=== PATIENT | female | born 1985 | race American Indian/Alaskan Native ===

== ENCOUNTER 2016-10-28 04:38 | Emergency (ER) | payer MEDICAID ==
[2016-10-28 05:21] LABS: Basophils % (Auto) 0.4 % (0.0-1.8); Eosinophils % (Auto) 0.5 % (0.0-4.3); Hematocrit 35.1 % (30.3-42.9); Hemoglobin 11.5 gm/dl (10.1-14.3); Mean Corpuscular HGB Conc 33 % (30-34); Mean Corpuscular Hemoglobin 29 pg (28-32); Mean Corpuscular Volume 87 fl (79-97); Platelet Count 219 K/mm3 (140-440); Red Blood Count 4.03 M/mm3 (3.65-5.03); Red Cell Distribution Width 13.4 % (13.2-15.2); White Blood Count 7.8 K/mm3 (4.5-11.0)
[2016-10-28 05:42] LABS: Anion Gap 17 mmol/L; BUN/Creatinine Ratio 31.66; Blood Urea Nitrogen 19 mg/dL (7-17); Calcium 8.8 mg/dL (8.4-10.2); Carbon Dioxide 25 mmol/L (22-30); Chloride 102.3 mmol/L (98-107); Glucose 103 mg/dL (65-100); Potassium 3.8 mmol/L (3.6-5.0); Sodium 140 mmol/L (137-145)
[2016-10-28 08:47] LABS: Bilirubin,Urine NEG (Negative); Blood,Urine NEG (Negative); Ketones,Urine TR mg/dL (Negative); Leukocyte Esterase,Urine NEG (Negative); Mucus,Urine 2+ /HPF; Nitrite,Urine NEG (Negative); Protein,Urine <15 mg/dL mg/dL (Negative); Urobilinogen,Urine < 2.0 mg/dL (<2.0)
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
[2016-10-28] MEDS ORDERED: TORADOL IM ONE (10:34)
--- NOTE | 2016-10-28 11:18 | XRay Report ---
Chest 2 views: History: Chest pain. Findings: Normal cardiomediastinal silhouette. Trachea is midline. No consolidation, pneumothorax or pleural effusion. Impression: No acute cardiopulmonary findings
[2016-10-28 12:48] VITALS: BP 104/58
== END 2016-10-28 12:49 | disposition home or self-care (01) ==
LOC: ED 04:38
DX: R07.89 Other chest pain (principal)
CPT/HCPCS: 36415; 71020; 80048; 81001; 81025; 84484; 85025; 93005; 93010; 96372; 99285; J1885

== ENCOUNTER 2017-06-04 10:23 | Emergency (ER) | payer MEDICAID, OTHER ==
[2017-06-04 12:17] LABS: Basophils # (Auto) 0.1 K/mm3 (0.0-0.1); Basophils % (Auto) 0.7 % (0.0-1.8); Eosinophils # (Auto) 0.2 K/mm3 (0.0-0.4); Eosinophils % (Auto) 2.9 % (0.0-4.3); Hematocrit 31.7 % (30.3-42.9); Hemoglobin 10.7 gm/dl (10.1-14.3); Lymphocytes # (Auto) 1.7 K/mm3 (1.2-5.4); Lymphocytes % (Auto) 21.1 % (13.4-35.0); Mean Corpuscular HGB Conc 34 % (30-34); Mean Corpuscular Hemoglobin 30 pg (28-32); Mean Corpuscular Volume 89 fl (79-97); Monocytes # (Auto) 0.8 K/mm3 (0.0-0.8); Monocytes % (Auto) 9.3 % (0.0-7.3); Platelet Count 268 K/mm3 (140-440); Red Blood Count 3.58 M/mm3 (3.65-5.03); Red Cell Distribution Width 13.8 % (13.2-15.2)
[2017-06-04] MEDS ORDERED: ZOFRAN ODT PO ONE (12:31)
[2017-06-04] MEDS ORDERED: TYLENOL PO ONE (12:31)
[2017-06-04 12:34] LABS: Alanine Aminotransferase 8 units/L (7-56); Albumin 3.7 g/dL (3.9-5); BUN/Creatinine Ratio 22; Blood Urea Nitrogen 11 mg/dL (7-17); Calcium 8.9 mg/dL (8.4-10.2); Hemolysis Index 6
[2017-06-04 12:44] LABS: INR 0.78 (0.87-1.13); Partial Thromboplastin Time 29.2 Sec. (24.2-36.6)
--- NOTE | 2017-06-04 12:44 | Emergency Department Report ---
Chief Complaint: Vaginal Bleeding Stated Complaint: VAGINAL BLEEDING Time Seen by Provider: 06/04/17 12:31 - HPI History of Present Illness: The patient [id number] female presents for evaluation of abdominal pain and vaginal bleeding. She reports abdominal pain and vaginal bleeding for the past one day, since last night before midnight. She states that she has had waxing and waning vaginal bleeding and believes that she is having a miscarriage. She reports a positive home test one month ago. She denies fever, vomiting, diarrhea, dysuria, vaginal discharge. - ROS Review of Systems: Constitutional: denies: fever ENT: denies: throat or neck pain Respiratory: denies: cough, shortness of breath Cardiovascular: denies: chest pain Endocrine: denies unexplained weight loss or gain Gastrointestinal: reports abdominal pain, denies: nausea Genitourinary: reports vag bleeding denies: dysuria Musculoskeletal: denies: leg swelling - Exam Vital Signs: Vital Signs 06/04/17 06/04/17 11:47 12:38 Temperature 98 F Pulse Rate 84 Respiratory 16 18 Rate Blood Pressure 130/70 O2 Sat by Pulse 98 Oximetry MSE screening note: Focused history and physical exam performed. Due to findings the following was ordered: Labs to investigate normal IUP versus threatened miscarriage versus ectopic are ordered. ABO Rh also ordered to rule out need for RhoGAM. ED Medical Decision Making - Lab Data Result diagrams: 06/04/17 11:58 06/04/17 11:58 ED Disposition for MSE Condition: Stable Referrals: PRIMARY CARE, [Primary Care Provider] - 3-5 Days
[2017-06-04 13:35] LABS: Bacteria,Urine 1+ /HPF (Negative); Bilirubin,Urine NEG (Negative); Blood,Urine LG (Negative); Color,Urine Yellow (Yellow); Mucus,Urine 2+ /HPF; Nitrite,Urine NEG (Negative); Urobilinogen,Urine < 2.0 mg/dL (<2.0)
[2017-06-04 13:37] LABS: RBC,Urine > 182.0 /HPF (0.0-6.0)
--- NOTE | 2017-06-04 14:18 | Ultrasound Report ---
ULTRASOUND OB LESS THAN 14 WEEKS FETUS ULTRASOUND OB TRANSVAGINAL HISTORY: Vaginal bleeding during . COMPARISON: None. TECHNIQUE: Transabdominal and transvaginal ultrasound with color doppler interrogation. FINDINGS: Uterus: The uterus is anteverted and measures 16 x 6 x 7 cm. No uterine mass is identified. Endometrium: No normal intrauterine is demonstrated. The endometrium is thickened and heterogeneous measuring 1.8 cm. No heart tones. Right ovary: 4.4 x 1.8 x 4.4 cm. A 1.8 cm cyst is noted in the right ovary. Left ovary: 2.6 x 1.7 x 2.0 cm. No focal abnormality. No pelvic fluid or mass is identified. Normal color doppler interrogation. IMPRESSION: No intrauterine is visualized. The endometrium is thickened and complex concerning for spontaneous with retained products of conception.
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
[2017-06-04 15:46] VITALS: BP 128/74
== END 2017-06-04 15:45 | disposition home or self-care (01) ==
LOC: ED 10:23
DX: O03.9 Complete or unspecified spontaneous abortion without complication (principal)
CPT/HCPCS: 36415; 76801; 76817; 80053; 81001; 84702; 85025; 85610; 85730; 86900; 86901; Q0162